=== PATIENT | female | born 1980 | race Native Hawaiian/Other Pacific Islander ===

== ENCOUNTER 2020-05-05 09:39 | Emergency (ER) | payer OTHER ==
[~2020-05-05] VITALS: Ht 175.3 cm; Wt 104.8 kg
[~2020-05-05 09:39] MED LIST: ADIPEX PO; BONTRIL PO; HYDR25TA60 PO
[2020-05-05 09:59] VITALS: TEMP 98.4
[2020-05-05 12:00] VITALS: BP 131/87
== END 2020-05-05 12:01 | disposition home or self-care (01) ==
LOC: ED 09:39
DX: S61.211A Laceration without foreign body of left index finger without damage to nail, initial encounter (principal); X58.XXXA Exposure to other specified factors, initial encounter; Y93.E9 Activity, other interior property and clothing maintenance; Y92.238 Other place in hospital as the place of occurrence of the external cause; Y99.0 Civilian activity done for income or pay
CPT/HCPCS: 99283

== ENCOUNTER 2022-12-05 20:25 | Emergency (ER) | payer OTHER ==
[~2022-12-05] VITALS: Ht 175.3 cm; Wt 103.4 kg
[2022-12-05 21:11] LABS: PLATELET COUNT 547 K/uL (152-353)
[2022-12-06 00:20] VITALS: BP 128/76; TEMP 97.8
== END 2022-12-06 00:20 | disposition home or self-care (01) ==
LOC: ED 20:25
PROVIDERS: Emergency Medicine
DX: R10.13 Epigastric pain (principal)
CPT/HCPCS: 36415; 80053; 81000; 81025; 82150; 82550; 83690; 84484; 85027; 85379; 93005; 96365; 96374; 96375; 99284; J1170; J2270; J2405; J3490; Q9963

== ENCOUNTER 2023-01-07 12:58 | Emergency (ER) | payer OTHER ==
[~2023-01-07] VITALS: Ht 175.3 cm; Wt 105.7 kg
[2023-01-07 13:08] VITALS: BP 155/71; TEMP 98.7
== END 2023-01-07 14:04 | disposition home or self-care (01) ==
LOC: ED 12:58
DX: K08.89 Other specified disorders of teeth and supporting structures (principal)
CPT/HCPCS: 96372; 99282; J1885